=== PATIENT | female | born 1970 | race Hispanic/Latino ===

== ENCOUNTER 2016-05-29 02:45 | Emergency (ER) | payer OTHER ==
[2016-05-29 04:41] LABS: ANION GAP 5 MEQ/L (8-16); BLOOD UREA NITROGEN 15 MG/DL (7-18); CALCIUM LEVEL 8.2 MG/DL (8.5-10.1); CARBON DIOXIDE LEVEL 32 MEQ/L (21-32); CHLORIDE LEVEL 108 MEQ/L (98-107); CREATININE FOR GFR 0.72 MG/DL (0.55-1.02); GLOMERULAR FILTRATION RATE > 60.0 (>58); GLUCOSE, FASTING 97 MG/DL (70-105); SODIUM LEVEL 145 MEQ/L (136-145)
[2016-05-29] MEDS ORDERED: CIPROFLOXACIN 500 MG TAB As Ordered ONE (05:58)
[2016-05-29] MEDS ORDERED: NORCO 5/325MG TABLET (BULK) As Ordered ONE (05:59)
--- NOTE | 2016-05-29 06:09 | EDDOCDS ---
Physician Documentation [facility] Name: Malinda Miranda Age: 46 yrs Sex: Female : 1970 Arrival Date: 05/29/2016 Time: 02:45 Bed 11 Private MD: Disposition: 05/29 06:00 I have independently interviewed and examined the patient, and I agree with the mm11 investigation, diagnosis and treatment plan as documented by the Resident. Disposition: 05/29/16 05:49 Discharged to Home/Self Care. Impression: Acute cystitis with hematuria - Pyelonephritis and Bilateral Nephrolithiasis. - Condition is Stable. - Discharge Instructions: Urinary Tract Infection, Urinary Tract Infection, [id number]. - Prescriptions for Cipro 500 mg Oral Tablet - take 1 tablet by ORAL route every 12 hours; 14 tablet. [place] 5- 325 mg Oral Tablet - take 1 tablet by ORAL route every 6 hours As needed MDD: 4 tabs; 20 tablet. Pyridium 200 mg Oral Tablet - take 1 tablet by ORAL route every 8 hours for 3 days; 9 tablet. - Medication Reconciliation, Local Pharmacy Hours form. - Follow up: RADHA Gamez; When: 1 week; Reason: Recheck today's complaints, Continuance of care. - Problem is new. - Symptoms have improved. Historical: - Allergies: Amoxicillin; Cefzil; SULFA (SULFONAMIDES); - Home Meds: 1. Celexa 40 mg Oral tab 1 tab once daily 2. Concerta 36 mg Oral tr24 1 tab once daily 3. Iron CR 250 mg Oral cpER 4. multivitamin Oral cap 5. Vitamin D Oral - PMHx: ADHD; Anemia; Anxiety; - PSHx: Tonsillectomy; Adenoidectomy; Tubal ligation; Breast Reduction; cervical spine surgery; biopsy lymph node; - Social history: Smoking status: Patient states was never smoker of tobacco. No barriers to communication noted, The patient speaks fluent Kazakh, Speaks appropriately for age. - Family history: Not pertinent. - : The pt / caregiver states he / she is not on anticoagulants. Home medication list is obtained from the patient. - Exposure Risk Screening:: None identified. 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 7 in. (170.18 cm); Pain 9/10; 06:06 BP 110 / 66; Pulse 77; Resp 18 S; Temp 97.9(TE); Pulse Ox 99% on R/A; af2 02:53 Body Mass Index 22.55 (65.32 kg, 170.18 cm) nn1 MDM: 03:05 UA Ordered. EDMS 03:05 Urine Culture Ordered. EDMS 03:47 BMP Ordered. EDMS 03:47 UA Reviewed. gk1 03:47 CT ABD & PELVIS: No Contrast Ordered. EDMS 03:50 Financial registration complete. pm4 03:54 [facility] Payment Agreement was scanned into [employer] and attached to record. pm4 05:18 BMP Reviewed. gk1 05:42 Ciprofloxacin 500 mg PO once ordered. gk1 05:55 HYDROcodone-acetaminophen 4 pack- 5 mg-325 mg 1 packets PO Per package directions; gk1 Dispense with patient. 1 po q4h prn for pain ordered. Administered Medications: 06:04 Drug: Ciprofloxacin 500 mg [ciprofloxacin 500 mg tablet (1 tabs)] Route: PO; cf2 06:05 Drug: HYDROcodone-acetaminophen 4 pack- 1 packets [hydrocodone 5 mg-acetaminophen 325 cf2 mg tablet (1 tabs)] {Co-Signature: af2 (Maria C Mancilla RN).} Route: PO; Signatures: Dispatcher [employer] EDMin Marley, DO DO mm11 Maria C Mancilla RN RN af2 Umer Stahl RN RN nn1 Kenton Acosta, DO DO gk1 Julio Faria, Reg Reg pm4 Agnes Emery RN cf2 Maria C Mancilla RN af2 The chart was reviewed and I authenticate all verbal orders and agree with the evaluation and treatment provided.Attachments: 03:54 [facility] Payment Agreement pm4 MTDD
--- NOTE | 2016-05-29 06:10 | EDDOCDS ---
Nurse's Notes [facility] Name: Malinda Miranda Age: 46 yrs Sex: Female : 1970 Arrival Date: 05/29/2016 Time: 02:45 Bed 11 Private MD: Diagnosis: Acute cystitis with hematuria-Pyelonephritis and Bilateral Nephrolithiasis Presentation: 05/29 02:49 Presenting complaint: Patient states: believes she has UTI. Reports pain in lower left nn1 back. Reports burning and painful urination. States symptoms began . Adult Sepsis Screening: The patient does not have new or worsening altered mentation. Patient's respiratory rate is less than 22. Systolic blood pressure is greater than 100. Patient has a qSOFA score of 0- Negative Sepsis Screen. Suicide/Homicide risk assessment- the patient denies having any suicidal and/or homicidal ideations and does not present with any other emotional, behavioral or mental health complaints. Status: The patient is a dependent. Transition of care: patient was not received from another setting of care. 02:49 Acuity: HUSSAIN Level 4 nn1 02:49 Method Of Arrival: Walkin/Carried/Asstd nn1 Triage Assessment: 02:52 General: Appears in no apparent distress, comfortable, Behavior is appropriate for age, nn1 cooperative. Pain: Location: left low back Pain currently is 9 out of 10 on a pain scale. Pain radiates to right low back Quality of pain is described as sharp, Pain began 2-3 days ago. HIV screening NA for this visit Offered previously. Neurological: Level of Consciousness is awake, alert, obeys commands. Respiratory: Airway is patent Respiratory effort is even, unlabored, Respiratory pattern is regular, symmetrical. : Reports burning with urination hematuria pain in lower back with urination. Derm: Skin is pink, warm & dry. 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 Celexa 40 mg Oral tab 1 tab once daily 2. Concerta 36 mg Oral tr24 1 tab once daily 3. Iron CR 250 mg Oral cpER 4. multivitamin Oral cap 5. Vitamin D Oral - PMHx: ADHD; Anemia; Anxiety; - PSHx: Tonsillectomy; Adenoidectomy; Tubal ligation; Breast Reduction; cervical spine surgery; biopsy lymph node; - Social history: Smoking status: Patient states was never smoker of tobacco. No barriers to communication noted, The patient speaks fluent French, Speaks appropriately for age. - Family history: Not pertinent. - : The pt / caregiver states he / she is not on anticoagulants. Home medication list is obtained from the patient. - Exposure Risk Screening:: None identified. Screenin:05 Screening information is obtained from the patient. Fall risk: No risks identified. af2 Assistance ADL's: requires no assistance with activities of daily living. Abuse/DV Screen: The patient / caregiver reports he/she is: not in a situation that causes fear, pain or injury. Nutritional screening: No deficits noted. Advance Directives: Currently, there is no health care proxy. home support is adequate. Assessment: 03:05 General: Appears in no apparent distress, comfortable, Behavior is appropriate for age, af2 cooperative. : Urine is cloudy, Reports burning with urination hematuria pain in left flank(s). Derm: Skin is normal. 04:22 General: Appears in no apparent distress, comfortable, Behavior is appropriate for age, af2 cooperative, pt resting quietly on stretcher, resp easy, unlabored. . 05:30 General: Appears in no apparent distress, comfortable, Behavior is appropriate for age, af2 cooperative. : Reports burning with urination hematuria. Derm: Skin is normal. Vital Signs: 02:53 BP 114 / 65; Pulse 79; Resp 18; Temp 97.9; Pulse Ox 98% on R/A; Weight 65.32 kg; Height nn1 5 ft. 7 in. (170.18 cm); Pain 9/10; 06:06 BP 110 / 66; Pulse 77; Resp 18 S; Temp 97.9(TE); Pulse Ox 99% on R/A; af2 02:53 Body Mass Index 22.55 (65.32 kg, 170.18 cm) nn1 Vitals: 02:53 Log In Time: May 29, 2016 at 02:45. nn1 ED Course: 02:47 Patient visited by Tracy Meyer. gjb 02:47 Patient moved to Waiting gjb 02:51 Triage Initiated nn1 02:55 Maria C Mancilla,RN is Primary Nurse. nn1 02:55 Patient moved to 11 nn1 03:00 Kenton Acosta DO is PHCP. gk1 03:00 Min Maldonado DO is Attending Physician. gk1 03:05 The patient / caregiver is instructed regarding the plan of care and ED course. Patient af2 has correct armband on for positive identification. 03:05 No IV's were initiated during this patient's visit. No procedures done that require af2 assistance. 03:06 Patient visited by Maria C Mancilla RN. af2 03:40 Patient visited by Maria C Mancilla RN. af2 03:42 Patient visited by Kenton Acosta DO. gk1 03:42 Patient visited by Kenton Acosta DO. gk1 03:54 PENDING SALE TO [facility] Payment Agreement was scanned into [employer] and attached to record. pm4 04:09 BMP Sent. af2 04:22 Patient visited by Maria C Mancilla RN. af2 05:18 Patient visited by Kenton Acosta DO. gk1 05:43 Patient visited by Kenton Acosta DO. gk1 05:49 [place] [facility] [place]erral Physician. gk1 06:08 Patient visited by Maria C Mancilla RN. af2 Administered Medications: 06:04 Drug: Ciprofloxacin 500 mg [ciprofloxacin 500 mg tablet (1 tabs)] Route: PO; cf2 06:05 Drug: HYDROcodone-acetaminophen 4 pack- 1 packets [hydrocodone 5 mg-acetaminophen 325 cf2 mg tablet (1 tabs)] {Co-Signature: af2 (Maria C Mancilla RN).} Route: PO; Order Results: Lab Order: UA; SPEC'M 05/29/16 03:01 Test: APPEARANCE, URINE; Value: CLOUDY; Range: CLEAR; Abnormal: Above high normal; Status: F Test: COLOR, URINE; Value: YELLOW; Range: YELLOW; Status: F Test: PH,URINE; Value: 6.0; Range: 5.0-9.0; Units: UNITS; Status: F Test: SPECIFIC GRAVITY URINE AUTO; Value: 1.018; Range: 1.002-1.035; Status: F Test: PROTEIN, URINE AUTO; Value: 2+; Range: NEGATIVE; Abnormal: Above high normal; Units: mg/dL; Status: F Test: GLUCOSE, URINE (UA) AUTO; Value: NEGATIVE; Range: NEGATIVE; Units: mg/dL; Status: F Test: KETONE, URINE AUTO; Value: NEGATIVE; Range: NEGATIVE; Units: mg/dL; Status: F Test: UROBILINOGEN, URINE AUTO; Value: 0.2; Range: 0.0-2.0; Units: mg/dL; Status: F Test: BILIRUBIN, URINE AUTO; Value: NEGATIVE; Range: NEGATIVE; Status: F Test: NITRITE, URINE AUTO; Value: NEGATIVE; Range: NEGATIVE; Status: F Test: LEUKOCYTE ESTERASE, URINE AUTO; Value: 3+; Range: NEGATIVE; Abnormal: Above high normal; Status: F Test: BLOOD, URINE BLOOD; Value: 3+; Range: NEGATIVE; Abnormal: Above high normal; Status: F Test: WBC, URINE AUTO; Value: TNTC; Range: 0-3; Abnormal: Above high normal; Units: /HPF; Status: F Test: RBC, URINE AUTO; Value: TNTC; Range: 0-3; Abnormal: Above high normal; Units: /HPF; Status: F Test: BACTERIA, URINE AUTO; Value: 1+; Range: NEGATIVE; Abnormal: Above high normal; Status: F Test: SQUAMOUS EPITHELIAL CELL UR AU; Value: 9; Range: 0-6; Units: /HPF; Status: F Test: HYALINE CAST, URINE AUTO; Value: 0; Range: 0-1; Units: /LPF; Status: F Lab Order: [facility]; SPEC'M 05/29/16 04:07 Test: GLUCOSE, FASTING; Value: 97; Range: 70-105; Units: MG/DL; Status: F Test: BLOOD UREA NITROGEN; Value: 15; Range: 7-18; Units: MG/DL; Status: F Test: CREATININE FOR GFR; Value: 0.72; Range: 0.55-1.02; Units: MG/DL; Status: F Test: GLOMERULAR FILTRATION RATE; Value: > 60.0; Range: >58; Status: F Test: SODIUM LEVEL; Value: 145; Range: 136-145; Units: MEQ/L; Status: F Test: POTASSIUM SERUM; Value: 4.0; Range: 3.5-5.1; Units: MEQ/L; Status: F Test: CHLORIDE LEVEL; Value: 108; Range: 98-107; Abnormal: Above high normal; Units: MEQ/L; Status: F Test: CARBON DIOXIDE LEVEL; Value: 32; Range: 21-32; Units: MEQ/L; Status: F Test: ANION GAP; Value: 5; Range: 8-16; Abnormal: Below low normal; Units: MEQ/L; Status: F Test: CALCIUM LEVEL; Value: 8.2; Range: 8.5-10.1; Abnormal: Below low normal; Units: MG/DL; Status: F Test Note: ; Units are mL/min/1.73 m2 Chronic Kidney Disease Staging per NKF: Stage I & II GFR >=60 Normal to Mildly Decreased Stage III GFR 30-59 Moderately Decreased Stage IV GFR 15-29 Severely Decreased Stage V GFR <15 Very Little GFR Left ESRD GFR <15 on TUBE INSPECTOR Outcome: 05:49 Discharge ordered by Provider. 1 06:07 Discharge Assessment: Patient awake, alert and oriented x 3. No cognitive and/or af2 functional deficits noted. Patient verbalized understanding of disposition instructions. patient administered narcotics -. Discharge Assessment: patient administered narcotics - no. The following High Risk Discharge criteria are identified: None. Discharged to home ambulatory. Condition: stable. Discharge instructions given to patient, Instructed on discharge instructions, follow up and referral plans. medication usage, no driving heavy equipment, no drinking with medication, Demonstrated understanding of instructions, medications, Pt was receptive of discharge instructions/ teaching. CT Study completed. Property :Personal belongings accompany Pt. 06:08 Patient left the ED. af2 Signatures: Maria C Mancilla RN RN af2 Umer Stahl RN RN andriy1 Tracy Meyer Christina, RN RN cf2 Kenton Acosta, DO DO 1 Julio Faria, Reg Reg pm4 Maria C Mancilla RN af2 MTDD
--- NOTE | 2016-05-31 06:26 | REPUSA ---
CLINICAL HISTORY: Abdominal pain. TECHNIQUE: Multiple axial, sagittal and coronal CT images were obtained through the abdomen and pelvi s without administration of oral or IV contrast material. COMMENTS: The liver is of uniform attenuation without mass or defect. There is no intra or extrahepatic biliary ductal dilatation. The spleen is normal. The gallbladder is within normal limits. The pancreas is of normal contour and attenuation characteristics. There is no evidence of adrenal mass. Bilateral nonobstructing renal stones the largest measuring 3 mm. The kidneys are normal in size, shape and configuration. No ureteral calculi are identified. There is no hydroureter or hydronephrosis. There is no evidence for appendicitis. There is no bowel wall thickening. No evidence for small or la rge bowel obstruction. There is no evidence of abdominal ascites or lymphadenopathy. There is no evidence of intrinsic or extrinsic bladder mass. There is no pelvic ascites or lymphadeno yulisa. Diffuse thickening of gallbladder. Images of the lung bases show no evidence of pleural or parenchymal mass. There are no pleural effusi ons. The bony structures are free of lytic or blastic lesions. IMPRESSION: Bilateral nephrolithiasis. Cystitis. Thank you for your kind referral of this patient.
--- NOTE | 2016-05-31 07:09 | EDDOCDS ---
Physician Documentation [facility] Name: Malinda Miranda Age: 46 yrs Sex: Female : 1970 Arrival Date: 05/29/2016 Time: 02:45 Bed 11 Private MD: Disposition: 05/29 06:00 I have independently interviewed and examined the patient, and I agree with the mm11 investigation, diagnosis and treatment plan as documented by the Resident. Disposition: 05/29/16 05:49 Discharged to Home/Self Care. Impression: Acute cystitis with hematuria - Pyelonephritis and Bilateral Nephrolithiasis. - Condition is Stable. - Discharge Instructions: Urinary Tract Infection, Urinary Tract Infection, [id number]. - Prescriptions for Cipro 500 mg Oral Tablet - take 1 tablet by ORAL route every 12 hours; 14 tablet. [place] 5- 325 mg Oral Tablet - take 1 tablet by ORAL route every 6 hours As needed MDD: 4 tabs; 20 tablet. Pyridium 200 mg Oral Tablet - take 1 tablet by ORAL route every 8 hours for 3 days; 9 tablet. - Medication Reconciliation, Local Pharmacy Hours form. - Follow up: RADHA Gamez; When: 1 week; Reason: Recheck today's complaints, Continuance of care. - Problem is new. - Symptoms have improved. Historical: - Allergies: Amoxicillin; Cefzil; SULFA (SULFONAMIDES); - Home Meds: 1. Celexa 40 mg Oral tab 1 tab once daily 2. Concerta 36 mg Oral tr24 1 tab once daily 3. Iron CR 250 mg Oral cpER 4. multivitamin Oral cap 5. Vitamin D Oral - PMHx: ADHD; Anemia; Anxiety; - PSHx: Tonsillectomy; Adenoidectomy; Tubal ligation; Breast Reduction; cervical spine surgery; biopsy lymph node; - Social history: Smoking status: Patient states was never smoker of tobacco. No barriers to communication noted, The patient speaks fluent Italian, Speaks appropriately for age. - Family history: Not pertinent. - : The pt / caregiver states he / she is not on anticoagulants. Home medication list is obtained from the patient. - Exposure Risk Screening:: None identified. 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 7 in. (170.18 cm); Pain 9/10; 06:06 BP 110 / 66; Pulse 77; Resp 18 S; Temp 97.9(TE); Pulse Ox 99% on R/A; af2 02:53 Body Mass Index 22.55 (65.32 kg, 170.18 cm) nn1 MDM: 03:05 UA Ordered. EDMS 03:05 Urine Culture Ordered. EDMS 03:47 BMP Ordered. EDMS 03:47 UA Reviewed. gk1 03:47 CT ABD & PELVIS: No Contrast Ordered. EDMS 03:50 Financial registration complete. pm4 03:54 [facility] [place] Agreement was scanned into [employer] and attached to record. pm4 05:18 BMP Reviewed. gk1 05:42 Ciprofloxacin 500 mg PO once ordered. gk1 05:55 HYDROcodone-acetaminophen 4 pack- 5 mg-325 mg 1 packets PO Per package directions; gk1 Dispense with patient. 1 po q4h prn for pain ordered. 09:52 T-Sheet-- Draft Copy was scanned into [employer] and attached to record. gb 05/30 18:00 Radiology Report was scanned into [employer] and attached to record. kf3 Administered Medications: 05/29 06:04 Drug: Ciprofloxacin 500 mg [ciprofloxacin 500 mg tablet (1 tabs)] Route: PO; cf2 06:05 Drug: HYDROcodone-acetaminophen 4 pack- 1 packets [hydrocodone 5 mg-acetaminophen 325 cf2 mg tablet (1 tabs)] {Co-Signature: af2 (Maria C Mancilla RN).} Route: PO; Signatures: Dispatcher [employer] EDMS Lillian Dumont, Reg Reg gb Min Maldonado, DO DO mm11 Que Arthur, Reg Reg kf3 Maria C MancillaRN RN af2 Umer Stahl RN RN nn1 Kenton Acosta, DO DO gk1 Julio Faria, Reg Reg pm4 Agnes Emery RN cf2 Maria C Mancilla RN af2 The chart was reviewed and I authenticate all verbal orders and agree with the evaluation and treatment provided.Attachments: 03:54 [facility] [place] Agreement pm4 09:52 T-Sheet-- Draft Copy gb Chart Complete MTDD
--- NOTE | 2016-05-31 07:09 | EDDOCDS ---
Nurse's Notes [facility] Name: Malinda Miranda Age: 46 yrs Sex: Female : 1970 Arrival Date: 05/29/2016 Time: 02:45 Bed 11 Private MD: Diagnosis: Acute cystitis with hematuria-Pyelonephritis and Bilateral Nephrolithiasis Presentation: 05/29 02:49 Presenting complaint: Patient states: believes she has UTI. Reports pain in lower left nn1 back. Reports burning and painful urination. States symptoms began . Adult Sepsis Screening: The patient does not have new or worsening altered mentation. Patient's respiratory rate is less than 22. Systolic blood pressure is greater than 100. Patient has a qSOFA score of 0- Negative Sepsis Screen. Suicide/Homicide risk assessment- the patient denies having any suicidal and/or homicidal ideations and does not present with any other emotional, behavioral or mental health complaints. Status: The patient is a dependent. Transition of care: patient was not received from another setting of care. 02:49 Acuity: HUSSAIN Level 4 nn1 02:49 Method Of Arrival: Walkin/Carried/Asstd nn1 Triage Assessment: 02:52 General: Appears in no apparent distress, comfortable, Behavior is appropriate for age, nn1 cooperative. Pain: Location: left low back Pain currently is 9 out of 10 on a pain scale. Pain radiates to right low back Quality of pain is described as sharp, Pain began 2-3 days ago. HIV screening NA for this visit Offered previously. Neurological: Level of Consciousness is awake, alert, obeys commands. Respiratory: Airway is patent Respiratory effort is even, unlabored, Respiratory pattern is regular, symmetrical. : Reports burning with urination hematuria pain in lower back with urination. Derm: Skin is pink, warm & dry. 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 Celexa 40 mg Oral tab 1 tab once daily 2. Concerta 36 mg Oral tr24 1 tab once daily 3. Iron CR 250 mg Oral cpER 4. multivitamin Oral cap 5. Vitamin D Oral - PMHx: ADHD; Anemia; Anxiety; - PSHx: Tonsillectomy; Adenoidectomy; Tubal ligation; Breast Reduction; cervical spine surgery; biopsy lymph node; - Social history: Smoking status: Patient states was never smoker of tobacco. No barriers to communication noted, The patient speaks fluent Greek, Speaks appropriately for age. - Family history: Not pertinent. - : The pt / caregiver states he / she is not on anticoagulants. Home medication list is obtained from the patient. - Exposure Risk Screening:: None identified. Screenin:05 Screening information is obtained from the patient. Fall risk: No risks identified. af2 Assistance ADL's: requires no assistance with activities of daily living. Abuse/DV Screen: The patient / caregiver reports he/she is: not in a situation that causes fear, pain or injury. Nutritional screening: No deficits noted. Advance Directives: Currently, there is no health care proxy. home support is adequate. Assessment: 03:05 General: Appears in no apparent distress, comfortable, Behavior is appropriate for age, af2 cooperative. : Urine is cloudy, Reports burning with urination hematuria pain in left flank(s). Derm: Skin is normal. 04:22 General: Appears in no apparent distress, comfortable, Behavior is appropriate for age, af2 cooperative, pt resting quietly on stretcher, resp easy, unlabored. . 05:30 General: Appears in no apparent distress, comfortable, Behavior is appropriate for age, af2 cooperative. : Reports burning with urination hematuria. Derm: Skin is normal. Vital Signs: 02:53 BP 114 / 65; Pulse 79; Resp 18; Temp 97.9; Pulse Ox 98% on R/A; Weight 65.32 kg; Height nn1 5 ft. 7 in. (170.18 cm); Pain 9/10; 06:06 BP 110 / 66; Pulse 77; Resp 18 S; Temp 97.9(TE); Pulse Ox 99% on R/A; af2 02:53 Body Mass Index 22.55 (65.32 kg, 170.18 cm) nn1 Vitals: 02:53 Log In Time: May 29, 2016 at 02:45. nn1 ED Course: 02:47 Patient visited by Tracy Meyer. gjb 02:47 Patient moved to Waiting gjb 02:51 Triage Initiated nn1 02:55 Maria C Mancilla,RN is Primary Nurse. nn1 02:55 Patient moved to 11 nn1 03:00 Kenton Acosta DO is PHCP. gk1 03:00 Min Maldonado DO is Attending Physician. gk1 03:05 The patient / caregiver is instructed regarding the plan of care and ED course. Patient af2 has correct armband on for positive identification. 03:05 No IV's were initiated during this patient's visit. No procedures done that require af2 assistance. 03:06 Patient visited by Maria C Macnilla RN. af2 03:40 Patient visited by Maria C Mancilla RN. af2 03:42 Patient visited by Kenton Acosta DO. gk1 03:42 Patient visited by Kenton Acosta DO. gk1 03:54 [facility] Payment Agreement was scanned into [employer] and attached to record. pm4 04:09 BMP Sent. af2 04:22 Patient visited by Maria C Mancilla RN. af2 05:18 Patient visited by Kenton Acosta DO. gk1 05:43 Patient visited by Kenton Acosta DO. gk1 05:49 Vera [facility] is Referral Physician. gk1 06:08 Patient visited by Maria C Mancilla RN. af2 09:52 T-Sheet-- Draft Copy was scanned into [employer] and attached to record. gb 05/30 18:00 Radiology Report was scanned into [employer] and attached to record. kf3 Administered Medications: 05/29 06:04 Drug: Ciprofloxacin 500 mg [ciprofloxacin 500 mg tablet (1 tabs)] Route: PO; cf2 06:05 Drug: HYDROcodone-acetaminophen 4 pack- 1 packets [hydrocodone 5 mg-acetaminophen 325 cf2 mg tablet (1 tabs)] {Co-Signature: af2 (Maria C Mancilla RN).} Route: PO; Order Results: Lab Order: UA; SPEC'M 05/29/16 03:01 Test: APPEARANCE, URINE; Value: CLOUDY; Range: CLEAR; Abnormal: Above high normal; Status: F Test: COLOR, URINE; Value: YELLOW; Range: YELLOW; Status: F Test: PH,URINE; Value: 6.0; Range: 5.0-9.0; Units: UNITS; Status: F Test: SPECIFIC GRAVITY URINE AUTO; Value: 1.018; Range: 1.002-1.035; Status: F Test: PROTEIN, URINE AUTO; Value: 2+; Range: NEGATIVE; Abnormal: Above high normal; Units: mg/dL; Status: F Test: GLUCOSE, URINE (UA) AUTO; Value: NEGATIVE; Range: NEGATIVE; Units: mg/dL; Status: F Test: KETONE, URINE AUTO; Value: NEGATIVE; Range: NEGATIVE; Units: mg/dL; Status: F Test: UROBILINOGEN, URINE AUTO; Value: 0.2; Range: 0.0-2.0; Units: mg/dL; Status: F Test: BILIRUBIN, URINE AUTO; Value: NEGATIVE; Range: NEGATIVE; Status: F Test: NITRITE, URINE AUTO; Value: NEGATIVE; Range: NEGATIVE; Status: F Test: LEUKOCYTE ESTERASE, URINE AUTO; Value: 3+; Range: NEGATIVE; Abnormal: Above high normal; Status: F Test: BLOOD, URINE BLOOD; Value: 3+; Range: NEGATIVE; Abnormal: Above high normal; Status: F Test: WBC, URINE AUTO; Value: TNTC; Range: 0-3; Abnormal: Above high normal; Units: /HPF; Status: F Test: RBC, URINE AUTO; Value: TNTC; Range: 0-3; Abnormal: Above high normal; Units: /HPF; Status: F Test: BACTERIA, URINE AUTO; Value: 1+; Range: NEGATIVE; Abnormal: Above high normal; Status: F Test: SQUAMOUS EPITHELIAL CELL UR AU; Value: 9; Range: 0-6; Units: /HPF; Status: F Test: HYALINE CAST, URINE AUTO; Value: 0; Range: 0-1; Units: /LPF; Status: F Lab Order: Urine Culture; SPEC'M 05/29/16 03:01 Test: URINE CULTURE; Value: <EXTERNAL COMMENT eCWMed> FULL REPORT IN LAB NOTES (eCW and Medent).; Status: F Test: URINE CULTURE; Value: URINE CULTURE RESULT SPECIMEN APPEARS CONTAMINATED; Status: F Lab Order: BMP; SPEC'M 05/29/16 04:07 Test: GLUCOSE, FASTING; Value: 97; Range: 70-105; Units: MG/DL; Status: F Test: BLOOD UREA NITROGEN; Value: 15; Range: 7-18; Units: MG/DL; Status: F Test: CREATININE FOR GFR; Value: 0.72; Range: 0.55-1.02; Units: MG/DL; Status: F Test: GLOMERULAR FILTRATION RATE; Value: > 60.0; Range: >58; Status: F Test: SODIUM LEVEL; Value: 145; Range: 136-145; Units: MEQ/L; Status: F Test: POTASSIUM SERUM; Value: 4.0; Range: 3.5-5.1; Units: MEQ/L; Status: F Test: CHLORIDE LEVEL; Value: 108; Range: 98-107; Abnormal: Above high normal; Units: MEQ/L; Status: F Test: CARBON DIOXIDE LEVEL; Value: 32; Range: 21-32; Units: MEQ/L; Status: F Test: ANION GAP; Value: 5; Range: 8-16; Abnormal: Below low normal; Units: MEQ/L; Status: F Test: CALCIUM LEVEL; Value: 8.2; Range: 8.5-10.1; Abnormal: Below low normal; Units: MG/DL; Status: F Test Note: ; Units are mL/min/1.73 m2 Chronic Kidney Disease Staging per NKF: Stage I & II GFR >=60 Normal to Mildly Decreased Stage III GFR 30-59 Moderately Decreased Stage IV GFR 15-29 Severely Decreased Stage V GFR <15 Very Little GFR Left ESRD GFR <15 on RUBBER [employer] AND SHAPE [employer]VER Radiology Order: CT ABD & PELVIS: No Contrast Test: CT ABD & PELVIS: No Contrast REASON FOR EXAMINATION: Renal colic; ; CLINICAL HISTORY: Abdominal pain.; TECHNIQUE: Multiple axial, sagittal and coronal CT images were obtained through the abdomen and pelvi; s without administration of oral or IV contrast material.; COMMENTS:; The liver is of uniform attenuation without mass or defect. There is no intra or extrahepatic biliary; ductal dilatation. The spleen is normal. The gallbladder is within normal limits. The pancreas is of; normal contour and attenuation characteristics. There is no evidence of adrenal mass.; Bilateral nonobstructing renal stones the largest measuring 3 mm.; The kidneys are normal in size, shape and configuration. No ureteral calculi are identified. There is; no hydroureter or hydronephrosis.; There is no evidence for appendicitis. There is no bowel wall thickening. No evidence for small or la; rge bowel obstruction. There is no evidence of abdominal ascites or lymphadenopathy.; There is no evidence of intrinsic or extrinsic bladder mass. There is no pelvic ascites or lymphadeno; yulisa.; Diffuse thickening of gallbladder.; Images of the lung bases show no evidence of pleural or parenchymal mass. There are no pleural effusi; ons.; The bony structures are free of lytic or blastic lesions.; IMPRESSION:; Bilateral nephrolithiasis.; Cystitis.; Thank you for your kind referral of this patient.; ; Outcome: 05:49 Discharge ordered by Provider. 1 06:07 Discharge Assessment: Patient awake, alert and oriented x 3. No cognitive and/or af2 functional deficits noted. Patient verbalized understanding of disposition instructions. patient administered narcotics -. Discharge Assessment: patient administered narcotics - no. The following High Risk Discharge criteria are identified: None. Discharged to home ambulatory. Condition: stable. Discharge instructions given to patient, Instructed on discharge instructions, follow up and referral plans. medication usage, no driving heavy equipment, no drinking with medication, Demonstrated understanding of instructions, medications, Pt was receptive of discharge instructions/ teaching. CT Study completed. Property :Personal belongings accompany Pt. 06:08 Patient left the ED. af2 Signatures: Lillian Dumont, Reg Reg gb Que Arthur, Reg Reg kf3 Maria C Mancilla RN RN af2 Umer Stahl RN RN nn1 Tracy Meyer ChristinaRN RN cf2 Kenton Acosta, DO DO gk1 Julio Faria, Reg Reg pm4 Maria C Mancilla RN af2 Chart Complete MTDD
--- NOTE | 2016-05-31 07:09 | EDDOCDS ---
Physician Documentation [facility] Name: Malinda Miranda Age: 46 yrs Sex: Female : 1970 Arrival Date: 05/29/2016 Time: 02:45 Bed 11 Private MD: Disposition: 05/29 06:00 I have independently interviewed and examined the patient, and I agree with the mm11 investigation, diagnosis and treatment plan as documented by the Resident. Disposition: 05/29/16 05:49 Discharged to Home/Self Care. Impression: Acute cystitis with hematuria - Pyelonephritis and Bilateral Nephrolithiasis. - Condition is Stable. - Discharge Instructions: Urinary Tract Infection, Urinary Tract Infection, [id number]. - Prescriptions for Cipro 500 mg Oral Tablet - take 1 tablet by ORAL route every 12 hours; 14 tablet. Aurora 5- 325 mg Oral Tablet - take 1 tablet by ORAL route every 6 hours As needed MDD: 4 tabs; 20 tablet. Pyridium 200 mg Oral Tablet - take 1 tablet by ORAL route every 8 hours for 3 days; 9 tablet. - Medication Reconciliation, Local Pharmacy Hours form. - Follow up: RAD[facility] Gamez; When: 1 week; Reason: Recheck today's complaints, Continuance of care. - Problem is new. - Symptoms have improved. Historical: - Allergies: Amoxicillin; Cefzil; SULFA (SULFONAMIDES); - Home Meds: 1. Celexa 40 mg Oral tab 1 tab once daily 2. Concerta 36 mg Oral tr24 1 tab once daily 3. Iron CR 250 mg Oral cpER 4. multivitamin Oral cap 5. Vitamin D Oral - PMHx: ADHD; Anemia; Anxiety; - PSHx: Tonsillectomy; Adenoidectomy; Tubal ligation; Breast Reduction; cervical spine surgery; biopsy lymph node; - Social history: Smoking status: Patient states was never smoker of tobacco. No barriers to communication noted, The patient speaks fluent Chadian, Speaks appropriately for age. - Family history: Not pertinent. - : The pt / caregiver states he / she is not on anticoagulants. Home medication list is obtained from the patient. - Exposure Risk Screening:: None identified. 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 7 in. (170.18 cm); Pain 9/10; 06:06 BP 110 / 66; Pulse 77; Resp 18 S; Temp 97.9(TE); Pulse Ox 99% on R/A; af2 02:53 Body Mass Index 22.55 (65.32 kg, 170.18 cm) nn1 MDM: 03:05 UA Ordered. EDMS 03:05 Urine Culture Ordered. EDMS 03:47 BMP Ordered. EDMS 03:47 UA Reviewed. gk1 03:47 CT ABD & PELVIS: No Contrast Ordered. EDMS 03:50 Financial registration complete. pm4 03:54 [facility] Payment Agreement was scanned into [employer] and attached to record. pm4 05:18 BMP Reviewed. gk1 05:42 Ciprofloxacin 500 mg PO once ordered. gk1 05:55 HYDROcodone-acetaminophen 4 pack- 5 mg-325 mg 1 packets PO Per package directions; gk1 Dispense with patient. 1 po q4h prn for pain ordered. 09:52 T-Sheet-- Draft Copy was scanned into [employer] and attached to record. gb 05/30 18:00 Radiology Report was scanned into [employer] and attached to record. kf3 Administered Medications: 05/29 06:04 Drug: Ciprofloxacin 500 mg [ciprofloxacin 500 mg tablet (1 tabs)] Route: PO; cf2 06:05 Drug: HYDROcodone-acetaminophen 4 pack- 1 packets [hydrocodone 5 mg-acetaminophen 325 cf2 mg tablet (1 tabs)] {Co-Signature: af2 (Maria C Mancilla RN).} Route: PO; Signatures: Dispatcher [employer] EDMS Lillian Dumont, Reg Reg gb Min Maldonado, DO DO mm11 Que Arthur, Reg Reg kf3 Maria C MancillaRN RN af2 Umer Stahl RN RN nn1 Kenton Acotsa, DO DO gk1 Julio Faria, Reg Reg pm4 Agnes Emery RN cf2 Maria C Mancilla RN af2 The chart was reviewed and I authenticate all verbal orders and agree with the evaluation and treatment provided.Attachments: 03:54 [facility] Payment Agreement pm4 09:52 T-Sheet-- Draft Copy gb Chart Complete MTDD
== END 2016-05-29 06:08 | disposition home or self-care (01) ==
LOC: M ED 02:45
DX: N20.0 Calculus of kidney (principal); N10 Acute pyelonephritis; F90.9 Attention-deficit hyperactivity disorder, unspecified type; D64.9 Anemia, unspecified; F41.9 Anxiety disorder, unspecified; Z79.899 Other long term (current) drug therapy; Z88.0 Allergy status to penicillin; Z88.2 Allergy status to sulfonamides

== ENCOUNTER 2016-07-12 17:42 | Emergency (ER) | payer OTHER ==
[~2016-07-12] VITALS: Ht 170.2 cm; Wt 62.6 kg
[2016-07-12] MEDS ORDERED: CONC36TA4 (17:54)
[2016-07-12] MEDS ORDERED: VITA400C29 PO (17:54)
[2016-07-12] MEDS ORDERED: IRON50TA PO (17:54)
[2016-07-12] MEDS ORDERED: FIOR1CAP PO (17:54)
[2016-07-12] MEDS ORDERED: NAPR500T2 PO (17:54)
[2016-07-12] MEDS ORDERED: MULT1TAB18 PO (17:54)
[2016-07-12] MEDS ORDERED: CELE20TA PO (17:54)
[2016-07-12] MEDS ORDERED: PYRI200T5 PO (21:46)
[2016-07-12] MEDS ORDERED: MACR100C3 PO (21:46)
[2016-07-12 21:53] VITALS: BP 116/70
[2016-07-12] MEDS ORDERED: NITROFURANTOIN (MACROBID) 100 MG CAP PO ONE (22:00)
[2016-07-12] MEDS ORDERED: PHENAZOPYRIDINE 100 MG TAB PO ONE (22:00)
[2016-07-16] MEDS ORDERED: TIGA300C2 PO (01:25)
== END 2016-07-12 21:54 | disposition home or self-care (01) ==
LOC: M ED 18:39
DX: N30.90 Cystitis, unspecified without hematuria (principal); Z87.891 Personal history of nicotine dependence; Z88.0 Allergy status to penicillin; Z88.2 Allergy status to sulfonamides; Z91.018 Allergy to other foods; Z79.899 Other long term (current) drug therapy

== ENCOUNTER 2017-02-01 18:00 | Emergency (ER) | payer OTHER ==
[~2017-02-01] VITALS: Ht 170.2 cm; Wt 65.9 kg
[~2017-02-01 18:00] MED LIST: CELE20TA PO; CONC36TA4; FIOR1CAP PO; IRON50TA PO; MACR100C43 PO; MULT1TAB18 PO; NAPR500T3 PO; PYRI1TAB5 PO; TIGA300C2 PO; VITA-110 PO
[2017-02-01 18:15] VITALS: BP 111/71
[2017-02-01] MEDS ORDERED: CITA40TA4 (18:20)
[2017-02-01] MEDS ORDERED: FLUTISP (18:20)
[2017-02-01] MEDS ORDERED: CETI10TA (18:20)
[2017-02-01] MEDS ORDERED: PYRI1TAB5 PO (19:59)
[2017-02-01] MEDS ORDERED: MACR100C43 PO (19:59)
[2017-02-01] MEDS ORDERED: NITROFURANTOIN (MACROBID) 100 MG CAP PO ONE (20:00)
[2017-02-01] MEDS ORDERED: PHENAZOPYRIDINE 100 MG TAB PO ONE (20:00)
== END 2017-02-01 20:14 | disposition home or self-care (01) ==
LOC: M ED 18:00
DX: N30.00 Acute cystitis without hematuria (principal); F41.9 Anxiety disorder, unspecified; F33.9 Major depressive disorder, recurrent, unspecified; Z79.899 Other long term (current) drug therapy; Z91.018 Allergy to other foods; Z88.0 Allergy status to penicillin; Z88.2 Allergy status to sulfonamides; Z88.8 Allergy status to other drugs, medicaments and biological substances

== ENCOUNTER 2017-07-18 07:13 | Day surgery (SDC) | payer OTHER ==
[2017-07-18] MEDS: NS 1,000 ML IV (07:47)
== END 2017-07-18 09:05 | disposition home or self-care (01) ==
LOC: M OPP 07:13
DX: K64.0 First degree hemorrhoids (principal); K62.5 Hemorrhage of anus and rectum; R19.4 Change in bowel habit; K44.9 Diaphragmatic hernia without obstruction or gangrene; F41.9 Anxiety disorder, unspecified; G43.909 Migraine, unspecified, not intractable, without status migrainosus; Z79.899 Other long term (current) drug therapy; Z88.0 Allergy status to penicillin; Z88.8 Allergy status to other drugs, medicaments and biological substances; Z91.018 Allergy to other foods; Z87.440 Personal history of urinary (tract) infections
CPT/HCPCS: 45380